=== PATIENT | female | born 1960 | race Asian ===

== ENCOUNTER 2024-06-04 10:29 | Day surgery (SDC) | payer OTHER ==
[2024-06-01 12:03] VITALS: BMI 30.4
[2024-06-04 10:50] VITALS: TEMP 97.5
[2024-06-04 13:37] VITALS: BP 116/61; PULSE 74; RESP 17
== END 2024-06-04 12:55 | disposition home or self-care (01) ==
LOC: FASU-ENDO 10:29
PROVIDERS: ATTEND Internal Medicine Gastroenterology
PROC: 0DJD8ZZ Inspection of Lower Intestinal Tract, Via Natural or Artificial Opening Endoscopic (ICD-10-PCS; principal; 2024-06-04 11:50)
DX: Z12.11 Encounter for screening for malignant neoplasm of colon (principal)